=== PATIENT | female | born 1960 | race Caucasian/White ===

== ENCOUNTER 2022-03-17 13:55 | Outpatient (CLI) | payer OTHER | END 2022-03-17 13:56 | disposition home or self-care (01) | LOC: CSHCT 13:55 | PROVIDERS: ATTEND Internal Medicine | DX: Z12.2 Encounter for screening for malignant neoplasm of respiratory organs (principal); F17.210 Nicotine dependence, cigarettes, uncomplicated; J43.9 Emphysema, unspecified | CPT/HCPCS: 71271 ==

== ENCOUNTER 2022-03-17 15:26 | Outpatient (CLI) | payer OTHER | END 2022-03-17 15:27 | disposition home or self-care (01) | LOC: CSHMAMMO 15:26 | PROVIDERS: ATTEND Internal Medicine | DX: Z12.31 Encounter for screening mammogram for malignant neoplasm of breast (principal) | CPT/HCPCS: 77063; 77067 ==

== ENCOUNTER 2023-10-12 08:39 | Outpatient (CLI) | payer MEDICARE, OTHER, SELFPAY | END 2023-10-12 08:40 | disposition home or self-care (01) | LOC: CSHULT 08:39 | PROVIDERS: ATTEND Internal Medicine | DX: Z12.2 Encounter for screening for malignant neoplasm of respiratory organs (principal); N18.31 Chronic kidney disease, stage 3a; R79.89 Other specified abnormal findings of blood chemistry | CPT/HCPCS: 71271; 76700 ==

== ENCOUNTER 2025-04-04 08:29 | Outpatient (CLI) | payer OTHER | END 2025-04-04 08:30 | disposition home or self-care (01) | LOC: CSHRAD 08:29 | PROVIDERS: ATTEND Internal Medicine Rheumatology | DX: M25.541 Pain in joints of right hand (principal); M25.542 Pain in joints of left hand ==